=== PATIENT | male | born 1960 | race Caucasian/White ===

== ENCOUNTER 2024-09-01 08:46 | Outpatient (REF) | payer OTHER, SELFPAY ==
--- OUTSIDE RECORDS SUMMARY | 2024-09-01 09:40 | XMS_ITS | Clinical Summary ---
Author Organization [facility] Address [address] [place] [address] Care Team Providers Care State Comptroller Name Role Phone Ike Wall MD Primary Care Provider Unavailab le Allergies No known active allergies Medications Medication Sig Dispensed Refills Start Date End Date Status simvastatin (ZOCOR) tablet 10 mg Take 10 mg by mouth every night at bedtime. 0 Active Active Problems Problem Noted Date Diagnosed Date Acute pain of left shoulder 03/12/2018 Rotator cuff syndrome of left shoulder 8 Family History Medical History Relation Name Comments Heart failure Father No Sig Med Hx Mother No Sig Med Hx Sister Relation Name Status Comments Father Mother Sister Alive Social History Tobacco Use Types Packs/Day Years Used Date Smoking Tobacco: Never Smokeless Tobacco: Never Alcohol Use Standard Drinks/Week Comments Yes 0 (1 standard drink = 0.6 oz pur e alcohol) socially Sex and Gender Information Value Date Recorded Sex Assigned at Not on file Gender Identity Not on file Sexual Orientation Not on file Job Start Date Occupation Industry Not on file Not on file Not on file Last Filed Vital Signs Vital Sign Reading Time Taken Comments Blood Pressure - - Pulse - - Temperature 36.6 ??C (97.9 ??F) 03/12/2018 8:29 AM ED T Respiratory Rate - - Oxygen Saturation - - Inhaled Oxygen Concentration - - Weight 68 kg (150 lb) 03/24/2018 10:37 AM EDT pt reported Height 172.7 cm (5' 8 ) 03/24/2018 10:37 AM EDT pt reported Body Mass Index 22.81 03/24/2018 10:37 AM EDT Plan of Treatment Health Maintenance Due Date Last Done Comments Hepatitis C Screening 1960 Depression Screening 1972 Preventative Health Evaluation 1978 DTap / Tdap / Td (1 - Tdap) 1979 Colon Cancer Screening (Colonoscopy) 2005 Shingrix-Zoster Vaccine (1 o f 2) 2010 COVID-19 Vaccine (3 - 2023-2 5 season) 2024 05/30/2021, 09/24/2020 Influenza Vaccine (#1) 2024 Pneumococcal Vaccine (1 of 1 - PCV) 2025 RSV Adult > 60+ Yrs or (1 - 1-dose 75+ series) 2035 Hepatitis B Vaccines Aged Out No long er eligible based on patient's age to complete this topic Pneumococcal Vaccine Aged Out No long er eligible based on patient's age to complete this topic RSV Ped < 20 months Aged Out No longe r eligible based on patient's age to complete this topic Advance Directives For more information, please contact: [phone] Documents on File Type Date Recorded Patient Gold Leaf Roller Expl anation Advance Directive and Living Will 02/24/2018 9:56 AM Care Teams State Comptroller Relationship Specialty Start Date End Date Ike Wall MD PCP - General Internal Medicine 12/30/23
--- OUTSIDE RECORDS SUMMARY | 2024-09-01 09:40 | XMS_ITS | Clinical Summary ---
Author Organization [facility]ly [facility] Address [address] [place] [address] Care Team Providers Care Rollway Man Name Role Phone Pcp, No Primary Care Provider Unavailabl e Immunizations Name Administration Dates Next Due Covid-19 Adenovirus Vaccine - Chilango 05/30/2021 ,09/24/2020 Social History Tobacco Use Types Packs/Day Years Used Date Smoking Tobacco: Never Assessed Sex and Gender Information Value Date Recorded Sex Assigned at Not on file Gender Identity Male 09/20/2020 11:36 AM EST Sexual Orientation Heterosexual (straight) 09/20 11:37 AM EST Plan of Treatment Health Maintenance Due Date Last Done Comments Hepatitis C Virus Screening 1960 HIV Screening 1973 DTaP/Tdap/Td Vaccines (1 - Tdap) 1979 Colonoscopy 2005 Pneumococcal Vaccines 50+ (1 of 1 - PCV) 2010 Zoster (Shingles) Vaccine (1 of 2) 2010 Influenza Vaccine 02/19/2024 COVID-19 Vaccine (3 - 2023-2 5 season) 2024 05/30/2021, 09/24/2020 RSV Vaccine 60 years and older and Patients (1 - 1-dose 75+ series) 2035 Hepatitis B Vaccines Aged Out No long er eligible based on patient's age to complete this topic Pneumococcal Vaccine: Pediatric (0-5 Years) and At-Risk Patients (6 to 49 Years) Aged Out No longer eligible b ased on patient's age to complete this topic Care Teams Rollway Man Relationship Specialty Start Date End Date Pcp, No PCP - General General Medicine 09/27/21
--- OUTSIDE RECORDS SUMMARY | 2024-09-01 09:40 | XMS_ITS | Clinical Summary ---
Author Organization [address] [place] [address] Address [address] [place] [address] Phone Care Team Providers Care Supervising Floorperson Name Role Phone Ike Wall MD Primary Care Provider [phone] Allergies No known active allergies Medications simvastatin (ZOCOR) 20 mg tablet TAKE 1 TABLET BY MOUTH AT BEDTIME 90 tablet 1 4 Active losartan (COZAAR) 50 mg tablet TAKE 1 TABLET BY MOUTH DAILY 30 tablet 2 5 Active losartan (COZAAR) 50 mg tablet Take 1 Tablet by mouth daily. 4 08/06/19 25 Discontinued Active Problems Problem Noted Date Diagnosed Date Elevated PSA 10/12/2019 Overview (04/19/2024): Dr. White Heart abnormality 10/12/2019 Overview (04/19/2024): Per patient. Correct by Cath as teenager. Hyperlipidemia 03/10/2018 Umbilical hernia 03/10/2018 Congenital deafness 01/01/2018 Inguinal hernia of left side without obstruction or gangrene 12/26/2017 Eczema 01/01/2017 Immunizations Name Administration Dates Next Due Clip/AddSearch SARS-CoV-2 COVID -19, vector-nr, [id number], preservative free 05/30/2021,09/24/2020 Surgical History Surgery Date Site/Laterality Comments EYE SURGERY PROCEDURE: HISTORICAL EYE SURGERY; COMMENT: strabismus correction COLONOSCOPY PROCEDURE: HISTORICAL COLONOSCOPY OTHER SURGICAL HISTORY 02/26/2022 Left PROCEDURE: OR RPR 1ST INGUN HRNA AGE 5 YRS/> REDUCIBLE; COMMENT: open LEFT inguinal hernia repair with prolene hernia system mesh ultralight large - Dr Gamaliel Vogel, [facility] [place] H[place]IA REPAIR PROCEDURE: OR REPAIR FIRST ABDOMINAL WALL HERNIA Medical History Medical History Date Comments Hyperlipidemia 03/10/2018 DX:Hyperlipidemi a Umbilical hernia 03/10/2018 DX:Umbilical he rnia Inguinal hernia of left side without obstruction or gangrene 12/26/2017 DX:Inguinal hernia of left s edith without obstruction or gangrene Congenital deafness 01/01/2018 DX:Congenita l deafness Eczema 01/01/2017 DX:Eczema Internal hemorrhoids 01/01/2018 DX:Internal hemorrhoids Elevated PSA DX:Elevated PSA Family History Relation Name Status Comments Father Mother Social History Tobacco Use Types Packs/Day Years Used Date Smoking Tobacco: Never Smokeless Tobacco: Never Tobacco Cessation:Counseling Given: Not Answered Alcohol Use Standard Drinks/Week Comments No 0 (1 standard drink = 0.6 oz pur e alcohol) Sex and Gender Information Value Date Recorded Sex Assigned at Not on file Legal Sex Male 10:59 AM EST Gender Identity Not on file Sexual Orientation Not on file Obstetrics History Last Filed Vital Signs Vital Sign Reading Time Taken Comments Blood Pressure 138/84 05/31/2024 10:56 AM EST Pulse 74 05/31/2024 10:56 AM EST Temperature 36.9 ??C (98.4 ??F) 05/31/2024 10:[address] Respiratory Rate - - Oxygen Saturation 100% 05/31/2024 10:56 AM EST Inhaled Oxygen Concentration - - Weight 62.1 kg (137 lb) 05/31/2024 10:56 AM EST Height 175.3 cm (5' 9 ) 05/26/2023 9:44 AM EST Body Mass Index 20.23 05/26/2023 9:44 AM EST Plan of Treatment Upcoming Encounters Date Type Department Care Team (Late st Contact Info) Description 11/26/2024 9:00 AM EDT Office Visit Internal Medicine - [place] [address] [facility] [address] [place] [address] Ike Wall MD [address] [facility] [address] [place] [address] Health Maintenance Due Date Last Done Comments DTaP,Tdap,and Td Vaccines (1 - Tdap) 1979 Pneumococcal Vaccine: 50+ Years (1 of 1 - PCV) 2010 Depression Screening 06/29/2022 HIV Screening 06/29/2022 Social Influencers of Health Screening 06/29/2022 Hypertension/CHF/CAD Annual BMP Blood Test 11/23/2024 11/24/2023, 11/24/2023 Cholesterol Screening (Lipid Panel) 11/23/2028 11/24/2023, 11/24/2023 Colorectal Cancer Screening: Colonoscopy 12/27/2031 12/26/2021 Hepatitis C Screening Completed 07/21/2011 RSV Immunization Patients 60+ Years Old Completed 06/09/2023 Zoster Vaccines Completed 06/09/2023, 04/03/2023 COVID-19 Vaccine Completed 04/19/2024, 09/2022, 04/03/2022, Additional history exists Influenza Vaccine Completed 04/19/2024, , 04/27/2022 HIB Vaccines Aged Out No longer eligi ble based on patient's age to complete this topic HPV Vaccines Aged Out No longer eligi ble based on patient's age to complete this topic Hepatitis A Vaccines Aged Out No long er eligible based on patient's age to complete this topic Hepatitis B Vaccines Aged Out No long er eligible based on patient's age to complete this topic IPV Vaccines Aged Out No longer eligi ble based on patient's age to complete this topic MMR Vaccines Aged Out No longer eligi ble based on patient's age to complete this topic Meningococcal ACWY Vaccine Aged Out N o longer eligible based on patient's age to complete this topic Meningococcal B Vacine Aged Out No lo nger eligible based on patient's age to complete this topic Pneumococcal Vaccine: Pediatrics (0 to 5 Years) and At-Risk Patients (6 to 64 Years) Aged Out No longer eligible based on patient's age to complete this topic RSV Immunization Patients Under 20 months Aged Out No longer eligible based on patient's age to complete this topic Varicella Vaccines Aged Out No longer eligible based on patient's age to complete this topic Procedures Procedure Name Priority Date/Time Associated Diagnosis Comments ANNUAL BMP BLOOD TEST Routine 11/24/2023 LIPID PANEL Routine 11/24/2023 COLONOSCOPY Routine 12/26/2021 HEPATITIS C SCREENING Routine 07/21/2011 from Last 3 Months or Most Recently Relevant to Health Maintenance Results * Annual BMP Blood Test (11/24/2023) [facility] Annual BMP Blood Test Abstracted [facility] Provider HEALTH MAINTENANCE Final Result * Lipid panel (11/24/2023) [facility] LDL/HDL Ratio 3 0 - 4 Triglycerides 118 0 - 150 mg/dL Cholesterol 141 0 - 200 mg/dL HDL 48 >=40 mg/dL LDL Cholesterol 70 0 - 100 mg/dL Blood Venous blood specimen / Unknown [facility] Provider LAB BLOOD ORDERABLES Antoinette l Result * Colonoscopy (12/26/2021) [facility] Colonoscopy No interpreta tion,abstr acted Anatomical Region Laterality Modality Other [facility] Provider HEALTH MAINTENANCE Final Result * Hepatitis C Screening (07/21/2011) [facility] Hepatitis C Screening Abstracted [facility] Provider HEALTH MAINTENANCE Final Result from Last 3 Months or Most Recently Relevant to Health Maintenance Insurance [employer] Care Teams Supervising Floorperson Relationship Specialty Start Date End Date Ike Wall MD PCP - General Internal Medicine 09/04/21
--- OUTSIDE RECORDS SUMMARY | 2024-09-01 09:40 | XMS_ITS ---
[facility] Name [facility] History of Medication Use Medication Directions Dispensed Refills Start Date End Date Stat us simvastatin 20 mg tablet TAKE 1 TABLET BY MOUTH AT BEDTIME active chlorhexidine gluconate 0.12 % mouthwash USE TO RINSE MOUTH TWICE DAILY DIRECTED active simvastatin (ZOCOR) tablet 10 mg Take 10 mg by mouth every night at bedtime. active amoxicillin 500 mg capsule TAKE 1 CAPSULE BY MOUTH THREE TIMES DAILY active Problems Problem Status Onset Date Problem Type Date of Resolution Source Acute pain of left shoulder active 2018-03-12 ProblemAct [facility] Rotator cuff syndrome of left shoulder active 2018-03-12 ProblemAct [facility] Pain active EncounterDiagnosisAct [facility] Lateral epicondylitis of left humerus active 2024-01-21 ProblemAct [facility]
--- NOTE | 2024-09-01 11:06 | MHC.AU.HA3 ---
Hearing Instrument Follow-Up- Binaural Date of Visit: 09/01/24 Claim Approver Used: Right Ear: Make, Model, Color, Serial Number: Oticon OPN 2 full shell ITE, [id number] Chief Quality Officer Repair Warranty: 09/12/21 Chief Quality Officer Loss and Damage Warranty: 09/12/21 [facility] Service Plan: Battery Size: 13 [employer] Developer/Slim Tube: Earmold/Dome/CShell/SlimTip: Type of Wax Guard: prowax mini Dispensed By: [facility] Date of Fittin09/02/2019 Follow-Up Summary: Here for re-evaluation and to inquire about new hearing aid. States he has been in touch with Marco Antonio at [facility], plans to apply online as instructed and return for full HAE/impression once approved. He wishes to stick with Oticon full shell ITE. Nearly occluding wax in right ear today, he is aware it will need to be removed prior to HAE for impression. Cleaned his hearing aid today as he was using a backup due to weak volume, nell covers and wax guards needed changing. Recommendations: Recommendations: Return for HAE once service requisition is received from [facility]. Diagnosis Code(s): Primary Diagnosis: H90.3 Bilateral Sensorineural Hearing Loss Signature: Provider: Yoly Bearden, CCC-A
== END 2024-09-01 08:47 | disposition home or self-care (01) ==
LOC: HO.SH 08:46
PROVIDERS: Visit Provider Internal Medicine
DX: Z01.118 Encounter for examination of ears and hearing with other abnormal findings (principal); H90.3 Sensorineural hearing loss, bilateral
CPT/HCPCS: 92557

== ENCOUNTER 2025-01-25 08:59 | Outpatient (REF) | payer SELFPAY ==
--- OUTSIDE RECORDS SUMMARY | 2025-01-25 09:18 | XMS_ITS | Encounter Summary ---
Author Organization [facility] Address [address] [place] [address] Care Team Providers Care Pottery Kiln Builder Name Role Phone Nicholas Kirk MD Primary Care Provider [phone] Ike Wall MD Primary Care Provider [phone] Encounter Details Date Type Department Care Team Description 09/27/2020 Side Seam Tender Report Medical Records [address] [place] [address] Mireya Adames Social History Tobacco Use Types Packs/Day Years Used Date Smoking Tobacco: Never Smokeless Tobacco: Never Alcohol Use Standard Drinks/Week Comments No 0 (1 standard drink = 0.6 oz pur e alcohol) Sex Assigned at Date Recorded Male 09/06/2021 10:18 AM EST documented as of this encounter Plan of Treatment Not on file documented as of this encounter Visit Diagnoses Not on filedocumented in this encounter Care Teams Pottery Kiln Builder Relationship Specialty Start Date End Date Nicholas Kirk MD [address] [place] [address] PCP - General Internal Medicine 08/10/19 09/03/21 Ike Wall MD [address] [place] [address] PCP - General Internal Medicine 09/04/21 documented as of this encounter
--- OUTSIDE RECORDS SUMMARY | 2025-01-25 09:18 | XMS_ITS | Clinical Summary ---
Author Organization [facility] Address [address] [place] [address] Care Team Providers Care Electromechanical Assembly Technician Name Role Phone Pcp, No Primary Care Provider Unavailabl e Immunizations Immunization Administration Dates Next Due Covid-19 Adenovirus Vaccine - Chilango 05/30/2021 ,09/24/2020 Social History Tobacco Use Types Packs/Day Years Used Date Smoking Tobacco: Never Assessed Sex and Gender Information Value Date Recorded Sex Assigned at Not on file Legal Sex Male 11:18 AM EST Gender Identity Male 09/20/2020 11:36 AM EST Sexual Orientation Heterosexual (straight) 09/20 11:37 AM EST Plan of Treatment Health Maintenance Due Date Last Done Comments Hepatitis C Virus Screening 1960 HIV Screening 1973 DTaP/Tdap/Td Vaccines (1 - Tdap) 1979 Colonoscopy 2005 Pneumococcal Vaccines 50+ (1 of 1 - PCV) 2010 Zoster (Shingles) Vaccine (1 of 2) 2010 COVID-19 Vaccine (3 - 2023-2 5 season) 2024 05/30/2021, 09/24/2020 Influenza Vaccine 02/18/2025 RSV Vaccine 60 years and older and Patients (1 - 1-dose 75+ series) 2035 Hepatitis B Vaccines Aged Out No long er eligible based on patient's age to complete this topic Insurance [employer] HMO [facility] HMO Care Teams Electromechanical Assembly Technician Relationship Specialty Start Date End Date Pcp, No PCP - General General Medicine 09/27/21
--- OUTSIDE RECORDS SUMMARY | 2025-01-25 09:18 | XMS_ITS | Clinical Summary ---
Author Organization [address] [place] [address] Address [address] [place] [address] Phone Care Team Providers Care Broodmare Foreman Name Role Phone Ike Wall MD Primary Care Provider [phone] Allergies No known active allergies Medications simvastatin (ZOCOR) 20 mg tablet TAKE 1 TABLET BY MOUTH AT BEDTIME 90 tablet 1 07/15/2024 Active losartan (COZAAR) 50 mg tablet Take 1 tablet (50 mg total) by mouth 1 (one) time each day. 30 tablet 2 11/18/2024 Active Active Problems Problem Noted Date Diagnosed Date Elevated PSA 10/12/2019 Overview (04/19/2024): Dr. White Heart abnormality 10/12/2019 Overview (04/19/2024): Per patient. Correct by Cath as teenager. Hyperlipidemia 03/10/2018 Umbilical hernia 03/10/2018 Congenital deafness 01/01/2018 Inguinal hernia of left side without obstruction or gangrene 12/26/2017 Eczema 01/01/2017 Encounters Date Type Department Care Team Description 11/26/2024 9:00 AM EDT Office Visit Internal Medicine [address] [address] Ike Wall MD Adult general medical examination (Primary Dx); Primary hypertension; Hypercholesterolemia; Elevated PSA; Varicose veins of lower extremities without ulcer or inflammation, right 11/26/2024 Telephone Internal Medicine [address] [address] Ike Wall MD from Last 3 Months Immunizations Name Administration Dates Next Due WILNER/[employer]Share SARS-CoV-2 COVID -19, vector-nr, rS-Ad26, preservative free 05/30/2021,09/24/2020 Surgical History Surgery Date Site/Laterality Comments EYE SURGERY PROCEDURE: HISTORICAL EYE SURGERY; COMMENT: strabismus correction COLONOSCOPY PROCEDURE: HISTORICAL COLONOSCOPY OTHER SURGICAL HISTORY 02/26/2022 Left PROCEDURE: CO RPR 1ST INGUN HRNA AGE 5 YRS/> REDUCIBLE; COMMENT: open LEFT inguinal hernia repair with prolene hernia system mesh ultralight large - Dr Gamaliel Vogel, [facility] HERNIA REPAIR PROCEDURE: CO REPAIR FIRST ABDOMINAL WALL HERNIA Medical History [...] drink = 0.6 oz pur e alcohol) Housing Instability Answer Date Recorde d Are you worried that in the next 2 months you may not have stable housing? No 11/19/2024 Food Access & Nutrition Answer Date Rec orded Do you have access to a vari ety of food including fruits and vegetables? Yes 11/19/2024 Health Literacy Answer Date Recorded How often do you need to hav e someone help you when you read instructions, pamphlets, or other written material from your doctor or pharmacy? Never 11/19/2024 Caregiver: How often do you need to have someone help you when you read instructions, pamphlets, or other written material from your doctor or pharmacy? Not on file 11/19/2024 Financial Risk Answer Date Recorded How hard is it for you to pa y for the very basics like food, housing, medical care, and air conditioning / heating? Not very hard 11/19/2024 Transportation Answer Date Recorded Has the lack of transportati on kept you from meetings, work, or from getting things needed for daily living? No Has the lack of transportati on kept you from medical appointments or from getting medications? No 11/19/2024 Social Isolation Answer Date Recorded How often do you feel lonely or isolated from th ose around you? Never 11/19/2024 Food Risk Answer Date Recorded Within the past 12 months we worried whether our food would run out before we got money to buy more. Never true 11/19/2024 Within the past 12 months th e food we bought just didn't last and we didn't have money to get more. Never true 11/19/2024 Dependent Care Answer Date Recorded Do you need help finding or paying for care for your loved ones. For example, child protective services specialist or elderly care for an older adult? No 11/19/2024 Education Answer Date Recorded Do you think completing more education or training, like finishing a GED, going to college, or learning a trade, would be helpful for you? Yes 11/19/2024 Employment and Income Answer Date Recor ded During the last four weeks, have you been actively looking for work? No 11/19/2024 Living Situation Answer Date Recorded What is your living situation? 0 11/19/2024 Sex and Gender Information Value Date Recorded Sex Assigned at Not on file Legal Sex Male 10:59 AM EST Gender Identity Not on file Sexual Orientation Not on file Obstetrics History Last Filed Vital Signs Vital Sign Reading Time Taken Comments Blood Pressure 138/80 11/26/2024 9:22 AM EDT Pulse 52 11/26/2024 8:56 AM EDT Temperature 36.1 C (96.9 F) 11/26/2024 8:56 AM EDT Respiratory Rate - - Oxygen Saturation 96% 11/26/2024 8:56 AM EDT Inhaled Oxygen Concentration - - Weight 62.5 kg (137 lb 12.8 oz) 11/26/2024 8:56 AM EDT Height 172.7 cm (5' 8 ) 11/26/2024 8:56 AM EDT Body Mass Index 20.95 11/26/2024 8:56 AM EDT Plan of Treatment Upcoming Encounters Date Type Department Care Team (Late st Contact Info) Description 03/24/2025 10:30 AM EDT Consult Vascular Surgery - [place] [address] [facility] [address] [place] [address] Genna Lerma MD 300 [facility] [address] [place] [address] 06/01/2025 9:30 AM EST Office Visit Internal Medicine - [place] 175 [facility] [address] [place] [address] Ike Wall MD 175 [facility] [address] [place] [address] Health Maintenance Due Date Last Done Comments DTaP,Tdap,and Td Vaccines (1 - Tdap) 1979 Pneumococcal Vaccine: 50+ Years (1 of 1 - PCV) 2010 HIV Screening 06/29/2022 Influenza Vaccine (#1) 2025 , 04/03/2023, 04/27/2022 Depression Screening 11/19/2025 11/19/2024 Social Influencers of Health Screening 11/19/2025 11/19/2024 Hypertension/CHF/CAD Annual BMP Blood Test 11/26/2025 11/26/2024, 11/24/2023, 11/24/2023 Cholesterol Screening (Lipid Panel) 11/26/2029 11/26/2024, 11/24/2023, 11/24/2023 Colorectal Cancer Screening: Colonoscopy 12/27/2031 12/26/2021 Hepatitis C Screening Completed 07/21/2011 RSV Immunization Adult Patients Completed 06/09/2023 Zoster Vaccines Completed 06/09/2023, 04/03/2023 COVID-19 Vaccine Completed 04/19/2024, 09/2022, 04/03/2022, Additional history exists HIB Vaccines Aged Out No longer eligi [...] age to complete this topic Meningococcal B Vaccine Aged Out No l onger eligible based on patient's age to complete this topic RSV Immunization Patients Under 20 months Aged Out No longer eligible based on patient's age to complete this topic Varicella Vaccines Aged Out No longer eligible based on patient's age to complete this topic Procedures Procedure Name Priority Date/Time Associated Diagnosis Comments CBC WITH AUTO DIFFERENTIAL Routine 11/26/2024 9:36 AM EDT Adult general medical examination Primary hypertension Hypercholesterolem ia Elevated PSA CBC AND DIFFERENTIAL Routine 11/26/2024 9:36 AM EDT Adult general medical examination Primary hypertension Hypercholesterolem ia Elevated PSA COMPREHENSIVE METABOLIC PANEL Routine 11/26/2024 9:36 AM EDT Adult general medical examination Primary hypertension Hypercholesterolem ia Elevated PSA LIPID PANEL WITH REFLEX TO DIRECT LDL Routine 11/26/2024 9:36 AM EDT Adult general medical examination Primary hypertension Hypercholesterolem ia Elevated PSA THYROID STIMULATING HORMONE Routine 11/26/2024 9:36 AM EDT Adult general medical examination Primary hypertension Hypercholesterolem ia Elevated PSA PROSTATE SPECIFIC ANTIGEN SCREEN Routine 11/26/2024 9:36 AM EDT Adult general medical examination Primary hypertension Hypercholesterolem ia Elevated PSA HM COLONOSCOPY Routine 12/26/2021 HEPATITIS C SCREENING Routine 07/21/2011 from Last 3 Months or Most Recently Relevant to Health Maintenance Results * (ABNORMAL) Prostate specific antigen screen (11/26/2024 9:36 AM EDT) PSA 4.97(H) 0.00 - 4.00 ng/mL LAB CHEMISTRY METHOD 11/26/2024 4:17 PM EDT [facility] Blood Venous blood specimen / Unknown Venipuncture / Unknown 11/26/2024 9:36 AM EDT 11/26/2024 9:36 AM EDT Narrative [facility] - 11/26/2024 4:17 PM EDT The Siemens Advia Centaur Chemiluminescent Immunoassay is used. Results obtained with different assay methods or kits cannot be used interchangeably. Results cannot be interpreted as absolute evidence of the presence or absence of malignant disease. us Ike Wall MD LAB BLOOD ORDERABLES Final Resul t [facility] [address] [place] [address], [place] [phone] * Lipid panel with reflex to direct LDL (11/26/2024 9:36 AM EDT) Cholesterol 152 0 - 200 mg/dL LAB CHEMISTRY METHOD 11/26/2024 3:40 PM EDT [facility] Triglycerides 56 0 - 150 mg/dL LAB CHEMISTRY METHOD 11/26/2024 3:40 PM EDT [facility] HDL 55 >=40 mg/dL LAB CHEMISTRY METHOD 11/26/2024 3:40 PM EDT [facility] LDL Calculated 86 0 - 100 mg/dL LAB CHEMISTRY METHOD 11/26/2024 3:40 PM EDT [facility] VLDL Cholesterol Storm 11.2 mg/dL LAB CHEMISTRY METHOD 11/26/2024 3:40 PM EDT [facility] Non HDL Chol. (LDL+VLDL) 97 <145 mg/dL LAB CHEMISTRY METHOD 11/26/2024 3:40 PM EDT [facility] Chol/HDL Ratio 2.8 0.0 - 4.4 LAB CHEMISTRY METHOD 11/26/2024 3:40 PM EDT [facility] Blood Venous blood specimen / Unknown Venipuncture / Unknown 11/26/2024 9:36 AM EDT 11/26/2024 9:36 AM EDT us Ike Wall MD LAB BLOOD ORDERABLES Final Resul t [facility] [address] [place] [address], [place] [phone] * (ABNORMAL) CBC auto differential (11/26/2024 9:36 AM EDT) WBC 4.7(L) 4.8 - 10.8 K/mcL LAB HEMETOLOGY METHOD 11/26/2024 2:17 PM EDT [facility] RBC 4.90 4.50 - 5.50 M/mcL LAB HEMETOLOGY METHOD 11/26/2024 2:17 PM EDT [facility] Hemoglobin 15.4 13.5 - 17.5 g/dL LAB HEMETOLOGY METHOD 11/26/2024 2:17 PM EDT [facility] Hematocrit 46.6 42.0 - 54.0 % LAB HEMETOLOGY METHOD 11/26/2024 2:17 PM EDT [facility] MCV 95.1 79.0 - 98.0 FL LAB HEMETOLOGY METHOD 11/26/2024 2:17 PM EDT [facility] MCH 31.4 27.0 - 32.0 pcg LAB HEMETOLOGY METHOD 11/26/2024 2:17 PM EDT [facility] MCHC 33.0 32.0 - 37.0 g/dL LAB HEMETOLOGY METHOD 11/26/2024 2:17 PM EDT [facility] RDW 13.9 11.0 - 15.0 % LAB HEMETOLOGY METHOD 11/26/2024 2:17 PM EDT [facility] Platelets 211 130 - 400 K/mcL LAB HEMETOLOGY METHOD 11/26/2024 2:17 PM [facility] MPV 11.2(H) 7.0 - 11.0 FL LAB HEMETOLOGY METHOD 11/26/2024 2:17 PM [facility] NRBC 0.0 <1.0 % LAB HEMETOLOGY METHOD 11/26/2024 2:17 PM [facility] NRBC Absolute 0.00 <0.10 K/mcL LAB HEMETOLOGY METHOD 11/26/2024 2:17 PM [facility] Neutrophils Relative 62.3 % LAB HEMETOLOGY METHOD 11/26/2024 2:17 PM [facility] Lymphocytes Relative 22.9 % LAB HEMETOLOGY METHOD 11/26/2024 2:17 PM [facility] Monocytes Relative 12.1 % LAB HEMETOLOGY METHOD 11/26/2024 2:17 PM [facility] Eosinophils Relative 1.5 % LAB HEMETOLOGY METHOD 11/26/2024 2:17 PM [facility] Basophils Relative 0.8 % LAB HEMETOLOGY METHOD 11/26/2024 2:17 PM [facility] Immature Granulocytes Relative 0.4 % LAB HEMETOLOGY METHOD 11/26/2024 2:17 PM [facility] Neutrophils Absolute 2.93 1.50 - 7.00 K/mcL LAB HEMETOLOGY METHOD 11/26/2024 2:17 PM [facility] Lymphocytes Absolute 1.08 1.00 - 5.00 K/mcL LAB HEMETOLOGY METHOD 11/26/2024 2:17 PM [facility] Monocytes Absolute 0.57 0.20 - 1.00 K/mcL LAB HEMETOLOGY METHOD 11/26/2024 2:17 PM [facility] Eosinophils Absolute 0.07 0.00 - 0.50 K/mcL LAB HEMETOLOGY METHOD 11/26/2024 2:17 PM EDT [facility] Basophils Absolute 0.04 0.00 - 0.20 K/[facility] LAB HEMETOLOGY METHOD 11/26/2024 2:17 PM EDT [facility] Immature Granulocytes Absolute 0.02 0.00 - 0.03 K/[facility] LAB HEMETOLOGY METHOD 11/26/2024 2:17 PM EDT [facility] Blood Venous blood specimen / Unknown Venipuncture / Unknown 11/26/2024 9:36 AM EDT 11/26/2024 9:36 AM EDT Ike Wall MD LAB BLOOD ORDERABLES Final Resul t Performing Organization Address [facility]/ZIP Co de Phone Number [facility] [address] [place] [address], [place] [phone] * Thyroid stimulating hormone (11/26/2024 9:36 AM EDT) TSH 3.54 0.40 - 4.00 mcIU/mL LAB CHEMISTRY METHOD 11/26/2024 5:17 PM EDT [facility] Blood Venous blood specimen / Unknown Venipuncture / Unknown 11/26/2024 9:36 AM EDT 11/26/2024 9:36 AM EDT Ike Wall MD LAB BLOOD ORDERABLES Final Resul t [facility] [address] [place] [address], [place] [phone] * Comprehensive metabolic panel (11/26/2024 9:36 AM EDT) Sodium 137 133 - 145 mmol/L LAB CHEMISTRY METHOD 11/26/2024 3:40 PM EDT [facility] Potassium 4.3 3.5 - 5.5 mmol/L LAB CHEMISTRY METHOD 11/26/2024 3:40 PM [facility] Chloride 104 96 - 110 mmol/L LAB CHEMISTRY METHOD 11/26/2024 3:40 PM [facility] CO2 30 21 - 32 mmol/L LAB CHEMISTRY METHOD 11/26/2024 3:40 PM [facility] Anion Gap 3 3 - 11 LAB CHEMISTRY METHOD 11/26/2024 3:40 PM [facility] Glucose 90 70 - 100 mg/dL LAB CHEMISTRY METHOD 11/26/2024 3:40 PM [facility] BUN 23 5 - 25 mg/dL LAB CHEMISTRY METHOD 11/26/2024 3:40 PM [facility] Creatinine 0.89 0.70 - 1.30 mg/dL LAB CHEMISTRY METHOD 11/26/2024 3:40 PM [facility] eGFR 96 >=60 mL/min/1. 73m2 LAB CHEMISTRY METHOD 11/26/2024 3:40 PM [facility] Comment:Calculation based on the Chronic Kidney Disease Epidemiology Collaboration (CKD-EPI) equation refit without adjustment for race. BUN/Creatinine Ratio 25.8 LAB CHEMISTRY METHOD 11/26/2024 3:40 PM [facility] Calcium 9.4 8.5 - 10.5 mg/dL LAB CHEMISTRY METHOD 11/26/2024 3:40 PM [facility] AST (SGOT) 26 10 - 42 unit/L LAB CHEMISTRY METHOD 11/26/2024 3:40 PM [facility] ALT (SGPT) 37 10 - 60 unit/L LAB CHEMISTRY METHOD 11/26/2024 3:40 PM [facility] Alkaline Phosphatase 72 42 - 121 unit/L LAB CHEMISTRY METHOD 11/26/2024 3:40 PM [facility] Total Protein 7.2 6.0 - 8.0 g/dL LAB CHEMISTRY METHOD 11/26/2024 3:40 PM EDT [facility] Albumin 4.1 3.2 - 5.0 g/dL LAB CHEMISTRY METHOD 11/26/2024 3:40 PM EDT [facility] Total Bilirubin 0.5 0.0 - 1.4 mg/dL LAB CHEMISTRY METHOD 11/26/2024 3:40 PM EDT [facility] Blood Venous blood specimen / Unknown Venipuncture / Unknown 11/26/2024 9:36 AM EDT 11/26/2024 9:36 AM EDT Ike Wall MD LAB BLOOD ORDERABLES Final Resul t [facility] [address] [place] [address], [place] [phone] * Colonoscopy (12/26/2021) Pathologist [facility] Colonoscopy No interpreta tion,abstr acted Anatomical Region Laterality Modality Other Historical Provider HEALTH MAINTENANCE Final Result * Hepatitis C Screening (07/21/2011) [facility] Hepatitis C Screening Abstracted Historical Provider HEALTH MAINTENANCE Final Result from Last 3 Months or Most Recently Relevant to Health Maintenance Insurance [employer] Care Teams Broodmare Foreman Relationship Specialty Start Date End Date Ike Wall MD [address] [address] PCP - General Internal Medicine 09/04/21
--- OUTSIDE RECORDS SUMMARY | 2025-01-25 09:18 | XMS_ITS | Clinical Summary ---
Author Organization [facility] Address [address] [place] [address] Care Team Providers Care Gasket Former Name Role Phone Ike Wall MD Primary [...] - - Pulse - - Temperature 36.6 C (97.9 F) 03/12/2018 8:29 AM EDT Respiratory Rate - - Oxygen Saturation - [...] season) 2024 05/30/2021, 09/24/2020 Influenza Vaccine (#1) 2025 Pneumococcal Vaccine (1 of 1 - PCV) [...] Advance Directives For more information, please contact: [phone] Documents on File Type Date Recorded Patient Home Demonstration Agent Expl anation Advance Directive and Living Will 02/24/2018 9:56 AM Care Teams Gasket Former Relationship Specialty Start Date End Date Ike Wall MD PCP - General Internal Medicine 12/30/23
--- NOTE | 2025-01-25 09:25 | MHC.AU.HA3 ---
Hearing Instrument Follow-Up- Binaural Date of Visit: 01/25/25 Right Ear: Make, Model, Color, Serial Number: Oticon Own 2 full shell ITE [id number] Topstitcher Zigzag Repair Warranty: 01/17/2028 Topstitcher Zigzag Loss and Damage Warranty: 01/17/2028 [facility] Service Plan: 12/31/2025 Battery Size: 312 Type of Wax Guard: Prowax mini Dispensed By: [facility] Date of Fittin12/31/24 Left Ear: NONE Follow-Up Summary: Seen for follow up. Jacob reports great satisfaction with the new Oticon Own hearing aid. Reports that the hearing aid is comfortable and the sound is excellent. Also happy with the streaming quality for phone calls. Requests no changes at this time. Reviewed [facility] 1 year service agreement. Recommendations: Recommendations: Hearing instrument maintenance in 6 months, or sooner if needed. Diagnosis Code(s): Primary Diagnosis: H90.3 Bilateral Sensorineural Hearing Loss Signature: Provider: Caryl Merino, [facility]
== END 2025-01-25 09:00 | disposition home or self-care (01) ==
LOC: HO.HAP 08:59
PROVIDERS: Visit Provider Internal Medicine
DX: Z13.89 Encounter for screening for other disorder (principal)